=== PATIENT | female | born 1955 | race Caucasian/White ===

== ENCOUNTER 2018-08-13 14:49 | Emergency (ER) | payer MEDICARE, BC ==
[2018-08-13 15:20] VITALS: BP 138/95
--- NOTE | 2018-08-13 16:02 | UC ---
Respiratory Complaint HPI - HPI Summary HPI Summary: Pt presents with c/o URI symptoms. cough, chest congestion, "chest heaviness", watery eyes, nasal congestion, X 3 days. Pt has known exposure to Strep throat, and bronchitis. - History of Current Complaint Chief Complaint: UCRespiratory Stated Complaint: FATIGUE/CONGESTION Time Seen by Provider: 08/13/18 15:21 Hx Obtained From: Patient ?: No Onset/Duration: Sudden Onset, Lasting Days, Still Present Timing: Constant Severity Initially: Mild Severity Currently: Moderate Pain Intensity: 7 Character: Cough: Nonproductive Aggravating Factors: Allergens, Deep Breaths, Recumbent Position Alleviating Factors: Nothing Associated Signs And Symptoms: Positive: URI, Nasal Congestion - Risk Factors Pulmonary Embolism Risk Factors: Negative Cardiac Risk Factors: Negative Pseudomonas Risk Factors: Negative Tuberculosis Risk Factors: Negative - Allergies/Home Medications Allergies/Adverse Reactions: Allergies Allergy/AdvReac Type Severity Reaction Status Date / Time No Known Allergies Allergy Verified 08/13/18 15:13 Home Medications: Home Medications traMADol TAB* [Ultram*] 1 tab BID PRN 08/13/18 [History Confirmed 08/13/18] PMH/Surg Hx/FS Hx/Imm Hx Previously Healthy: Yes - Surgical History Surgical History: Yes Surgery Procedure, Year, and Place: hysterectomy - Family History Known Family History: Positive: Cardiac Disease - Social History Occupation: Employed Full-time Lives: With Family Alcohol Use: None Substance Use Type: None Smoking Status (MU): Never Smoked Tobacco Have You Smoked in the Last Year: No - Immunization History Most Recent Influenza Vaccination: 3010-6112 Vaccination Up to Date: No Review of Systems All Other Systems Reviewed And Are Negative: Yes Constitutional: Positive: Fatigue Skin: Positive: Negative Eyes: Positive: Negative ENT: Positive: Sore Throat, Sinus Congestion Respiratory: Positive: Cough Cardiovascular: Positive: Negative Gastrointestinal: Positive: Negative Genitourinary: Positive: Negative Motor: Positive: Negative Neurovascular: Positive: Negative Musculoskeletal: Positive: Negative Neurological: Positive: Negative Psychological: Positive: Negative Physical Exam Triage Information Reviewed: Yes Appearance: Ill-Appearing Vital Signs: Initial Vital Signs Temp 98.6 F 08/13/18 15:15 Pulse 117 08/13/18 15:15 Resp 18 08/13/18 15:15 BP 138/95 08/13/18 15:15 Pulse Ox 100 08/13/18 15:15 Vital Signs Reviewed: Yes Eye Exam: Normal ENT: Positive: Nasal congestion Dental Exam: Normal Neck exam: Normal Respiratory Exam: Normal Cardiovascular Exam: Normal Musculoskeletal Exam: Normal Neurological Exam: Normal Psychological Exam: Normal Skin Exam: Normal Diagnostics - Radiology No standard instances Radiology Interpretation Completed By: Radiologist - 2 views of the chest including dual energy PA views demonstrates no mediastinal shift. Heart is of normal size and configuration. Lung walls are clear. IMPRESSION: No active cardiopulmonary disease is noted. Respiratory Course/Dx - Differential Dx/Diagnosis Differential Diagnosis/HQI/PQRI: Bronchitis, Influenza, Sinusitis Provider Diagnosis: Cough in adult, Environmental allergies, Viral syndrome Discharge - Sign-Out/Discharge Documenting (check all that apply): Patient Departure All imaging exams completed and their final reports reviewed: Yes - Discharge Plan Condition: Stable Disposition: HOME Prescriptions: Albuterol HFA INHALER* [Ventolin HFA Inhaler*] 1 - 2 puff INH Q4H PRN #1 mdi PRN Reason: Sob/Wheezing Benzonatate CAP* [Tessalon 100 MG CAP*] 200 mg PO Q8H PRN #30 cap PRN Reason: Cough Fexofenadine/Pseudoephedrine [Rosa Isela-D 24 Hour Tablet] 1 each PO DAILY #10 tab.er.24h predniSONE TAB* [Deltasone 10 MG TAB*] 30 mg PO DAILY #12 tab Patient Education Materials: Allergic Rhinitis (ED), Viral Syndrome (ED) Referrals: George Daniels MD [Primary Care Provider] - If Needed - Billing Disposition and Condition Condition: STABLE Disposition: Home - Attestation Statements Provider Attestation: Per institutional requirements, I have reviewed the chart, however, I was not consulted specifically or made aware of this patient by the midlevel provider. I did not personally evaluate, interact with , or disposition this patient.
== END 2018-08-13 16:14 | disposition home or self-care (01) ==
LOC: UCCORT 14:49
DX: R05 Cough (principal); B34.9 Viral infection, unspecified; T78.49XA Other allergy, initial encounter; X58.XXXA Exposure to other specified factors, initial encounter
CPT/HCPCS: 71046; 87651; 99212; G0463

== ENCOUNTER 2019-05-07 17:50 | Emergency (ER) | payer MEDICARE, BC ==
--- OUTSIDE RECORDS SUMMARY | 2019-05-07 18:04 | XMS REPORT | Continuity of Care Document ---
:1955 External Reference #:[id number] Author Name George Daniels MD (transmitted by agent of provider Eliza Foy) Address [address] [place] [address] Care Team Providers Name Role Phone Seth Valentine MD - Obstetrics & Care Team Information Real Estate Management Specialist Gynecology George Daniels MD - Family Care Team Information Real Estate Management Specialist Medicine Elaina Beard MD - Internal Medicine Care Team Information Real Estate Management Specialist Wiley Hess MD - Urology Care Team Information Real Estate Management Specialist [phone] Alex Jackson DPM - Seam Stay Stitcher Care Team Information Real Estate Management Specialist Problems Active Problems Provider Date Low back pain Onset: 07/12/2017 Hyperlipidemia Onset: 07/12/2017 Panic disorder without agoraphobia Onset: 07/12/2017 Osteoporosis Onset: 07/12/2017 Arthropathy Onset: 04/17/2011 Depressive disorder Onset: 04/17/2011 Chronic hypotension Onset: 04/17/2011 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 Hypothyroidism Onset: 05/16/2011 Sleep apnea Onset: 05/16/2011 Essential hypertension Onset: 05/16/2011 Asthma without status asthmaticus Onset: 05/16/2011 Anxiety state Onset: 05/16/2011 Sciatica Onset: 05/16/2011 Gastroesophageal reflux disease Onset: 05/16/2011 Social History Type Date Description Comments Sex Unknown Tobacco Use Start: Unknown Never Smoked Cigarettes Smoking Status Reviewed: 04/20/19 Never Smoked Cigarettes ETOH Use Denies alcohol use ETOH Use Denies alcohol use Tobacco Use Start: Unknown Patient has never smoked Recreational Drug Use Denies Drug Use Tobacco Use Start: Unknown Patient has never smoked Allergies, Adverse Reactions, Alerts Description No Known Drug Allergies Medications Active Medications SIG Qnty Indications Ordering Date Provider Dicyclomine HCL 1 every 6 hours as 30caps R10.30 George 04/20/2019 10mg needed MD Jeremiah Capsules Nitrofurantoin one tablet by 30caps Flor Alcocer, 01/13/2019 Macrocrystal mouth after MD 100mg intercourse Capsules Estradiol 0.5gram vaginally 42.500gm R30.0 Flor Alcocer, 11/04/2018 0.1mg/GM qHS 2x/week Cream Atorvastatin Calcium take 1 tablet by 90tabs E78.5 George 10/24/2018 mouth once daily MD Jeremiah 10mg Tablets Ultram take 1 tablet with 120tabs M54.5 George 02/17/2018 50mg Tablets 1 tylenol every 4 MD Jeremiah hours if needed Sertraline HCL 1 by mouth every 90tabs F32.9 George 05/15/2016 100mg day MD Jeremiah Tablets Colace 3 by mouth every 270caps K59.00 George 05/15/2016 100mg Capsules day MD Jeremiah Levothyroxine Sodium 1 by mouth every 90tabs E03.9 George 12/09/2013 day MD Jeremiah 75mcg Tablets Pantoprazole Sodium 1 po qday Unknown 40mg Tablets DR Schmidt Apply A Thin Film Unknown Acetonide to affected area 0.1% Ointment twice a day for 2 weeks then Break Premarin 0.5grams vaginally Unknown 0.625mg/GM 2x/week Cream History Medications Nitrofurantoin one tablet by mouth 30caps Flor Alcocer, 01/13/2019 - Macrocrystal after intercourse 01/13/2019 100mg Capsules Nitrofurantoin Monohyd one tablet by mouth 30caps R30.0 Flor Alcocer, 03/2019 - Macro after intercourse 01/07/2019 100mg Capsules Atorvastatin Calcium take 1 tablet by 90tabs E78.5 George 10/24/2018 - 10mg mouth once daily Jeremiah, 10/24/2018 Tablets Immunizations CPT Code Status Date Vaccine Lot # [id number] Given 02/17/2018 Influ Virus Vaccine, Recomb Dna, Hemagglut flublok 19-49 [id number] Given 03/18/2017 Tdap - Tetanus/Diptheria/Acellular Pertussis 26850 Given 02/24/2016 Zoster (Zostavax) 17709 Given 02/16/2016 Influenza Virus Vaccine, Quadrivalent, Split, Im Use 6-35mo 47166 Given 01/09/2015 Influenza Virus Vaccine, Quadrivalent, Split, Im Use 6-35mo 45178 Given 03/06/2013 Influenza Virus 3Yrs & Over 42389 Given 05/09/2012 Influenza Virus 3Yrs & Over 52020 Given 12/10/2011 Tdap - Tetanus/Diptheria/Acellular Pertussis 16549 Given 05/07/2007 Influenza Virus 3Yrs & Over 64725 Given 03/08/2004 Pneumonia Vaccine 82409 Given 02/21/2004 Tetanus And Diptheria (Td) For Adult Use Preservative Free Vital Signs Date Vital Result Comment 04/20/2019 12:55pm Weight 197.00 lb BP Systolic 126 mmHg BP Diastolic 78 mmHg Body Temperature 98.6 F 01/13/2019 11:32am Height 66 inches 5'6" Weight 194.00 lb Heart Rate 82 /min BP Systolic 121 mmHg BP Diastolic 77 mmHg O2 % BldC Oximetry 98 % BMI (Body Mass Index) 31.3 kg/m2 Results Test Acquired Date Facility Test Result H/L Range Note Urinalysis Profile 04/18/2019 [facility] Urine Color Yellow [address] [place] [address] [phone] Urine Appearance Clear Urine Specific [employer] 1.014 Normal 1.010-1.030 Urine pH 5.0 Normal 5-9 Urine Urobilinogen Negative Negative Urine Ketones Negative Negative Urine Protein Negative Negative Urine Leukocytes Negative Negative Urine Blood Negative Negative Urine Nitrite Negative Negative Urine Bilirubin Negative Negative Urine Glucose Negative Negative Urine Culture And 04/18/2019 [facility] Urine Culture SEE RESULT [address] [place] [address] [phone] Urinalysis Profile 11/04/2018 [facility] Urine Color Yellow [address] [place] [address] [phone] Urine Appearance Cloudy Urine Specific [employer] 1.019 Normal 1.010-1.030 Urine pH 5.0 Normal 5-9 Urine Urobilinogen Negative Negative Urine Ketones Negative Negative Urine Protein Negative Negative Urine Leukocytes Negative Negative Urine Blood Negative Negative * * Abnormal Negative 2 Urine Nitrite Negative Negative Urine Bilirubin Negative Negative Urine Glucose Negative Negative Urine Culture And 11/04/2018 [facility] Urine Culture SEE RESULT [address] [place] [address] [phone] 1 SEE RESULT BELOW Name: NEVIN BARBOSA : [address]: Deanna Buckner NP, CNM Acct: [id number] Unit: [id number] AGE: 63 Location: LOC[facility]IN [facility] Re04/18/19 SEX: F Status: REG REF SPEC: [id number] ABDIFATAH: 04/18/19-3 [facility] : Deanna Buckner NP [facility] REQ: [id number] RECD: 04/18/19-1009 STATUS: COMP _ SOURCE: URINE SPDESC: ORDERED: Urine Culture Procedure Result Reported Site Urine Culture Final 04/19/19- 1401 ML No Growth (<1,000 CFU/mL) * ML - Main Lab . END OF REPORT DEPARTMENT OF PATHOLOGY, [address] [place] [address] Crescencio Finley M.D. Director [facility] # [id number] 2 *Ascorbic acid is present which may interfere with detection of blood. 3 SEE RESULT BELOW Name: NEVIN BARBOSA : [address]: Flor Alcocer MD Acct: [id number] Unit: [id number] AGE: 63 Location: [facility] Re11/04/18 SEX: F Status: REG REF SPEC: [id number] ABDIFATAH: 11/04/18 [facility] DR: Flor Alcocer MD REQ: [id number] RECD: 11/04/18 STATUS: COMP _ SOURCE: URINE SPDESC: ORDERED: Urine Culture COMMENTS: [id number] Urine Source: Random Procedure Result Reported Site Urine Culture Final 11/05/18- 1213 ML No Growth (<1,000 CFU/mL) * ML - Main Lab . END OF REPORT DEPARTMENT OF PATHOLOGY, [address] [place] [address] Crecsencio Finley M.D. Director [facility] # [id number] Procedures Date Code Description Status 01/16/2019 255839533 Diabetic Foot Exam Completed 02/05/2018 [id number] Colonoscopy Completed 07/10/2017 [id number] Mammogram Completed Medical Devices Description No Information Available Encounters Type Date Location Provider Dx Diagnosis Office Visit 01/13/2019 [facility] Flor Alcocer, N83.201 Unspecified ovarian 11:30a [facility] at MD cyst, right side [place] Z87.440 Personal history of urinary (tract) infections Z12.31 Encntr screen mammogram for malignant neoplasm of breast Office Visit 01/07/2019 [facility] George M54.5 Low back pain 1:30p Margie Daniels MD Office Visit 11/04/2018 [facility] Flor Alcocer MD N83.201 Unspecified 11:30a [facility] ovarian cyst, at [place] right side R30.0 Dysuria N81.11 Cystocele, midline Z90.710 Acquired absence of both cervix and uterus Assessments Date Code Description Provider 04/20/2019 R10.30 Lower abdominal pain, unspecified George Daniels MD 04/20/2019 M54.5 Low back pain George Daniels MD 01/13/2019 N83.201 Unspecified ovarian cyst, right side Flor Alcocer MD 01/13/2019 Z87.440 Personal history of urinary (tract) Flor Alcocer MD infections 01/13/2019 Z12.31 Encounter for screening mammogram for Flor Alcocer MD malignant neoplasm of breast 01/07/2019 M54.5 Low back pain George Daniels MD 11/04/2018 N83.201 Unspecified ovarian cyst, right side Flor Alcocer MD 11/04/2018 R30.0 Dysuria Flor Alcocer MD 11/04/2018 N81.11 Cystocele, midline Flor Alcocer MD 11/04/2018 Z90.710 Acquired absence of both cervix and uterus Flor Alcocer MD Plan of Treatment Future Appointment(s):05/04/2019 1:00 pm - George Daniels MD at [facility]05/11/2019 1:15 pm - George Daniels MD at [facility] - George Daniels MDM54.5 Low back painFollow up:3 monthsAllNew Medication:Dicyclomine HCL 10 mg - 1 every 6 hours as needed Functional Status Functional Condition Comment Date Status Back brace Active Bifocal glasses Active Mental Status Description No Information Available Referrals Refer to Reason for Referral Status Appt Date Kenzie Lorenz, PT, OCS Sent [address] [place] [address] [phone]
[2019-05-07 18:20] VITALS: BP 101/58
--- NOTE | 2019-05-07 19:18 | UC ---
Abdominal Pain Female HPI - HPI Summary HPI Summary: Pt presents with c/o of RUQ pain, bloating, diarrhea and mild abdominal discomfort. Pt states she was seen by her PCP 3 weeks ago, and is scheduled to see GI provider on 05/13/19. Pt reports that she called her PCP today and was told to go to [facility] to see "what they can do for you". - History of Current Complaint Chief Complaint: UCAbdominalPain Stated Complaint: ABDOMINAL CRAMPING Time Seen by Provider: 05/07/19 18:47 Hx Obtained From: Patient ?: No Onset/Duration: Sudden Onset, Lasting Days, Still Present Timing: Constant Severity Initially: Mild Severity Currently: Mild Pain Intensity: 5 Location: Discrete At: RUQ Radiates: No Character: Burning, Colicy, Dull Aggravating Factor(s): Food Alleviating Factor(s): Nothing Associated Signs and Symptoms: Positive: Diarrhea, Other: - c/o bloating, RUQ discomfort, flatulence, belching Allergies/Adverse Reactions: Allergies Allergy/AdvReac Type Severity Reaction Status Date / Time No Known Allergies Allergy Verified 05/07/19 18:10 PMH/Surg Hx/FS Hx/Imm Hx Previously Healthy: Yes - Surgical History Surgical History: Yes Surgery Procedure, Year, and Place: hysterectomy - Family History Known Family History: Positive: Cardiac Disease - Social History Occupation: Retired Lives: With Family Alcohol Use: None Substance Use Type: None Smoking Status (MU): Never Smoked Tobacco Have You Smoked in the Last Year: No - Immunization History Most Recent Influenza Vaccination: 0871-1121 Vaccination Up to Date: No Review of Systems All Other Systems Reviewed And Are Negative: Yes Constitutional: Positive: Fatigue Skin: Positive: Negative Eyes: Positive: Negative ENT: Positive: Negative Respiratory: Positive: Negative Cardiovascular: Positive: Negative Gastrointestinal: Positive: Abdominal Pain, Diarrhea Genitourinary: Positive: Negative Motor: Positive: Negative Neurovascular: Positive: Negative Musculoskeletal: Positive: Negative Neurological: Positive: Negative Psychological: Positive: Negative Is Patient Immunocompromised?: No Physical Exam Triage Information Reviewed: Yes Appearance: Well-Appearing Vital Signs: Initial Vital Signs Temp 99.4 F 05/07/19 18:12 Pulse 87 05/07/19 18:12 Resp 15 05/07/19 18:12 BP 101/58 05/07/19 18:12 Pulse Ox 100 05/07/19 18:12 Vital Signs Reviewed: Yes Eye Exam: Normal ENT Exam: Normal ENT: Positive: Hearing grossly normal Dental Exam: Normal Neck exam: Normal Respiratory Exam: Normal Cardiovascular Exam: Normal Abdomen Description: Positive: Other: - RUQ discomfort. Bowel Sounds: Positive: Present Musculoskeletal Exam: Normal Neurological Exam: Normal Psychological Exam: Normal Skin Exam: Normal Abd Pain Female Course/Dx - Differential Dx/Diagnosis Differential Diagnosis: Diverticulitis, Gall Bladder Disease Provider Diagnosis: Abdominal pain, Abdominal bloating, Diarrhea Discharge ED - Sign-Out/Discharge Documenting (check all that apply): Patient Departure All imaging exams completed and their final reports reviewed: No Studies - Discharge Plan Condition: Stable Disposition: HOME Patient Education Materials: Acute Abdominal Pain (ED) Referrals: George Daniels MD [Primary Care Provider] - As Soon As Possible Additional Instructions: Please follow up with your PCP as soon as possible. If your symptoms worsen, please go directly to the closest emergency room. - Billing Disposition and Condition Condition: STABLE Disposition: Home
== END 2019-05-07 19:25 | disposition home or self-care (01) ==
LOC: UCCORT 17:50
DX: R10.11 Right upper quadrant pain (principal); R19.7 Diarrhea, unspecified; R14.0 Abdominal distension (gaseous); R53.83 Other fatigue
CPT/HCPCS: 99211; G0463

== ENCOUNTER 2019-05-13 20:37 | Emergency (ER) | payer MEDICARE, BC ==
[2019-05-13 20:48] VITALS: BP 124/65
--- NOTE | 2019-05-13 21:04 | UC ---
Complaint Female HPI - HPI Summary HPI Summary: 63-year-old female presents with onset of dysuria, frequency, and urgency today. States that she has had several weeks of abdominal bloating, cramping, and diarrhea and was evaluated by GI today. She is scheduled for H. pylori testing tomorrow. Denies fever, chills, hematuria, back or flank pain, nausea, vomiting, or vaginal discharge. - History Of Current Complaint Chief Complaint: UCGI Stated Complaint: URINARY Time Seen by Provider: 05/13/19 20:43 Hx Obtained From: Patient Pain Intensity: 8 - Allergies/Home Medications Allergies/Adverse Reactions: Allergies Allergy/AdvReac Type Severity Reaction Status Date / Time No Known Allergies Allergy Verified 05/13/19 20:48 PMH/Surg Hx/FS Hx/Imm Hx Endocrine History: Hypothyroidism - Surgical History Surgical History: Yes Surgery Procedure, Year, and Place: hysterectomy - Family History Known Family History: Positive: None, Cardiac Disease - Social History Occupation: Retired Lives: Alone Alcohol Use: None Substance Use Type: None Smoking Status (MU): Never Smoked Tobacco Have You Smoked in the Last Year: No - Immunization History Most Recent Influenza Vaccination: 4044-3338 Vaccination Up to Date: No Review of Systems All Other Systems Reviewed And Are Negative: Yes Constitutional: Negative: Fever, Chills Respiratory: Positive: Negative Cardiovascular: Positive: Negative Gastrointestinal: Positive: Abdominal Pain, Diarrhea. Negative: Vomiting, Nausea Genitourinary: Positive: Dysuria, Frequency, Urgency. Negative: Hematuria, Vaginal/Penile Discharge, Abnormal Bleeding Musculoskeletal: Positive: Negative Neurological: Positive: Negative Is Patient Immunocompromised?: No Physical Exam - Summary Physical Exam Summary: GENERAL APPEARANCE: Well developed, well nourished, alert and cooperative, and appears to be in no acute distress. CARDIAC: Normal S1 and S2. No S3, S4 or murmurs. Rhythm is regular. There is no peripheral edema, cyanosis or pallor. Extremities are warm and well perfused. Capillary refill is less than 2 seconds. Peripheral pulses intact. LUNGS: Clear to auscultation without rales, rhonchi, wheezing or diminished breath sounds. ABDOMEN: Positive bowel sounds. Soft, nondistended, nontender. No guarding or rebound. No masses or hepatosplenomegally. No CVA tenderness. MUSKULOSKELETAL: ROM intact to all extremities. No joint erythema or tenderness. Normal muscular development. Normal gait. SKIN: Skin normal color, texture and turgor with no lesions or eruptions. Triage Information Reviewed: Yes Vital Signs: Initial Vital Signs Temp 96.8 F 05/13/19 20:44 Pulse 67 05/13/19 20:44 Resp 18 05/13/19 20:44 BP 124/65 05/13/19 20:44 Pulse Ox 100 05/13/19 20:44 Vital Signs Reviewed: Yes Complaint Female Dx - Course Course Of Treatment: 63-year-old female presents with onset of dysuria, frequency, and urgency today. States that she has had several weeks of abdominal bloating, cramping, and diarrhea and was evaluated by GI today. She is scheduled for H. pylori testing tomorrow. Denies fever, chills, hematuria, back or flank pain, nausea, vomiting, or vaginal discharge. Afebrile. Vital signs stable. Patient's exam was overall unremarkable. [id number] urinalysis showed 2+ leukocyte esterase , 3+ blood, 2+ protein. Urine culture is pending. Discussed results with the patient. Based on her symptoms and urinalysis results we'll treat her empirically for a urinary tract infection with Macrobid 100 mg twice a day 5 days and provide her with Pyridium 100 mg 3 times a day 2 days to help the discomfort. She was given the first dose of each of these medications in the clinic. She is to follow-up with her primary care provider in 3 days if symptoms are not improving. Anticipatory guidance and warning symptoms reviewed with the patient. Verbalizes understanding and agrees with plan of care. - Differential Dx/Diagnosis Differential Diagnosis/HQI/PQRI: Urinary Tract Infection, Other - Vulvovaginitis , vaginal atrophy Provider Diagnosis: UTI (urinary tract infection) Discharge ED - Sign-Out/Discharge Documenting (check all that apply): Patient Departure All imaging exams completed and their final reports reviewed: No Studies - Discharge Plan Condition: Stable Disposition: HOME Prescriptions: Nitrofurantoin Monohyd/M-Cryst [Macrobid 100 mg Capsule] 100 mg PO BID #9 cap Phenazopyridine TAB* [Pyridium 100 mg TAB*] 100 mg PO TID #5 tab Patient Education Materials: Urinary Tract Infection in Women (ED) Referrals: George Daniels MD [Primary Care Provider] - 3 Days (If no improvement in symptoms.) Additional Instructions: Your urine test in the clinic today is suggestive of a urinary tract infection. We will start you on an antibiotic to treat for the infection. We will also send a urine culture today to see what bacteria grow out and make sure the antibiotic you were prescribed is appropriate to treat the infection. It will take 48-72 hours to get these results. We will contact you if there is any change in your treatment plan. Start [antibiotic]. Take Pyridium 1 tablet every 8 hours for next 2 days to help with the discomfort. This medication will turn your urine an orange color. Drink plenty of fluids. To help prevent urinary tract infections: 1) Be sure to wipe from front to back. 2) Urinate immediately after any sexual intercourse. 3) Avoid taking bubble baths. Follow up with your primary care provider in 5-7 days if symptoms persist. Seek immediate medical attention in the emergency room if you develop fever greater than 100.5 F, have severe abdominal pain, persistent vomiting, or any worsening of symptoms. - Billing Disposition and Condition Condition: STABLE Disposition: Home
[2019-05-13] MEDS ORDERED: Phenazopyridine TAB* 100 MG PO ONE (21:06)
[2019-05-13] MEDS ORDERED: Nitrofurantoin Macrocrystals* 50 MG CAP PO ONE (21:06)
--- NOTE | 2019-05-16 07:28 | UC ---
- Progress Note Progress Note: + urine cx e coli. prelim -on macrobid -await sensitivity Course/Dx - Diagnoses Provider Diagnoses: UTI (urinary tract infection) Discharge ED - Sign-Out/Discharge Documenting (check all that apply): Post-Discharge Follow Up All imaging exams completed and their final reports reviewed: No Studies - Discharge Plan Condition: Stable Disposition: HOME Prescriptions: Nitrofurantoin Monohyd/M-Cryst [Macrobid 100 mg Capsule] 100 mg PO BID #9 cap Phenazopyridine TAB* [Pyridium 100 mg TAB*] 100 mg PO TID #5 tab Patient Education Materials: Urinary Tract Infection in Women (ED) Referrals: George Daniels MD [Primary Care Provider] - 3 Days (If no improvement in symptoms.) Additional Instructions: Your urine test in the clinic today is suggestive of a urinary tract infection. We will start you on an antibiotic to treat for the infection. We will also send a urine culture today to see what bacteria grow out and make sure the antibiotic you were prescribed is appropriate to treat the infection. It will take 48-72 hours to get these results. We will contact you if there is any change in your treatment plan. Start [antibiotic]. Take Pyridium 1 tablet every 8 hours for next 2 days to help with the discomfort. This medication will turn your urine an orange color. Drink plenty of fluids. To help prevent urinary tract infections: 1) Be sure to wipe from front to back. 2) Urinate immediately after any sexual intercourse. 3) Avoid taking bubble baths. Follow up with your primary care provider in 5-7 days if symptoms persist. Seek immediate medical attention in the emergency room if you develop fever greater than 100.5 F, have severe abdominal pain, persistent vomiting, or any worsening of symptoms. - Billing Disposition and Condition Condition: STABLE Disposition: Home
--- NOTE | 2019-05-17 11:25 | UC ---
- Progress Note Progress Note: Final urine culture report reviewed Escherichia coli more than 100,000 CFU/mL Sensitive to Macrobid Patient on Macrobid. No change in plan Course/Dx - Diagnoses Provider Diagnoses: UTI (urinary tract infection) Discharge ED - Sign-Out/Discharge Documenting (check all that apply): Post-Discharge Follow Up All imaging exams completed and their final reports reviewed: No Studies - Discharge Plan Condition: Stable Disposition: HOME Prescriptions: Nitrofurantoin Monohyd/M-Cryst [Macrobid 100 mg Capsule] 100 mg PO BID #9 cap Phenazopyridine TAB* [Pyridium 100 mg TAB*] 100 mg PO TID #5 tab Patient Education Materials: Urinary Tract Infection in Women (ED) Referrals: George Daniels MD [Primary Care Provider] - 3 Days (If no improvement in symptoms.) Additional Instructions: Your urine test in the clinic today is suggestive of a urinary tract infection. We will start you on an antibiotic to treat for the infection. We will also send a urine culture today to see what bacteria grow out and make sure the antibiotic you were prescribed is appropriate to treat the infection. It will take 48-72 hours to get these results. We will contact you if there is any change in your treatment plan. Start [antibiotic]. Take Pyridium 1 tablet every 8 hours for next 2 days to help with the discomfort. This medication will turn your urine an orange color. Drink plenty of fluids. To help prevent urinary tract infections: 1) Be sure to wipe from front to back. 2) Urinate immediately after any sexual intercourse. 3) Avoid taking bubble baths. Follow up with your primary care provider in 5-7 days if symptoms persist. Seek immediate medical attention in the emergency room if you develop fever greater than 100.5 F, have severe abdominal pain, persistent vomiting, or any worsening of symptoms. - Billing Disposition and Condition Condition: STABLE Disposition: Home
== END 2019-05-13 21:20 | disposition home or self-care (01) ==
LOC: UCCORT 20:37
DX: N39.0 Urinary tract infection, site not specified (principal); R10.9 Unspecified abdominal pain; R19.7 Diarrhea, unspecified; R14.0 Abdominal distension (gaseous)
CPT/HCPCS: 81003; 87077; 87086; 87186; 99212; A9270-GY; G0463